=== PATIENT | male | born 1985 | race Caucasian/White ===

== ENCOUNTER → 2024-04-30 09:49 | Outpatient (REF) | payer OTHER, SELFPAY | LOC: DHSLP 09:49 | PROVIDERS: ATTENDING PHYSICIAN Internal Medicine Critical Care Medicine | DX: G47.33 Obstructive sleep apnea (adult) (pediatric) (principal) | CPT/HCPCS: 95800 ==

== ENCOUNTER → 2025-08-05 06:38 | Outpatient (REF) | payer OTHER, SELFPAY | LOC: EMG 06:38 | PROVIDERS: ATTENDING PHYSICIAN Internal Medicine | DX: R20.2 Paresthesia of skin (principal) | CPT/HCPCS: 95886; 95911 ==

== ENCOUNTER → 2025-08-06 12:26 | Outpatient (REF) | payer OTHER, SELFPAY | LOC: HWRAD 12:26 | PROVIDERS: ATTENDING PHYSICIAN Internal Medicine | DX: R20.2 Paresthesia of skin (principal) | CPT/HCPCS: 76536 ==